=== PATIENT | female | born 1995 | race Caucasian/White ===

== ENCOUNTER 2019-03-14 10:04 | Emergency (ER) | payer OTHER ==
--- NOTE | 2019-03-14 10:52 | UC ---
UC General HPI - HPI Summary HPI Summary: Two days of burning with urination and urinary frequency. Is sexually active with same partner for 3 years. Uses [facility]. Not concerned about STI's at this time. No back pain. No fevers. No abdominal pain. Tolerating PO well. Meds : Reviewed. ITs been many years since she has had a UTI. No vaginal discharge - History of Current Complaint Chief Complaint: UCGU Stated Complaint: URINARY ISSUE Time Seen by Provider: 03/14/19 10:43 Hx Last Menstrual Period: 02/21/19 Pain Intensity: 2 - Allergy/Home Medications Allergies/Adverse Reactions: Allergies Allergy/AdvReac Type Severity Reaction Status Date / Time No Known Allergies Allergy Verified 03/14/19 10:35 Home Medications: Home Medications Control 1 tab PO DAILY 03/14/19 [History Confirmed 03/14/19] PMH/Surg Hx/FS Hx/Imm Hx Previously Healthy: Yes - Surgical History Surgical History: Yes Surgery Procedure, Year, and Place: wisdom teeth - Social History Alcohol Use: Rare Substance Use Type: None Smoking Status (MU): Never Smoked Tobacco Review of Systems All Other Systems Reviewed And Are Negative: Yes Physical Exam Triage Information Reviewed: Yes Appearance: Well-Appearing Vital Signs: Initial Vital Signs Temp 97.9 F 03/14/19 10:33 Pulse 58 03/14/19 10:33 Resp 16 03/14/19 10:33 BP 114/71 03/14/19 10:33 Pulse Ox 100 03/14/19 10:33 Respiratory: Positive: Lungs clear Cardiovascular: Positive: RRR, No Murmur Abdomen Description: Positive: Nontender, Soft, Other: - NO CVA tenderness Course/Dx - Course Course Of Treatment: This is a 24 yr old with dysuria Assessment U/A:+2 blood and +2 protein Based on symptoms most likely UTI Plan Start Bactrim as prescribed We will contact you if you need to change antibiotics If symptoms persist despite taking antibiotics, recommend return to urgent care for further evaluation or return to PCP - Diagnoses Provider Diagnosis: Cystitis Discharge - Sign-Out/Discharge Documenting (check all that apply): Patient Departure All imaging exams completed and their final reports reviewed: No Studies - Discharge Plan Condition: Good Disposition: HOME Patient Education Materials: Urinary Tract Infection in Women (ED) Referrals: No Primary Care Phys,NOPCP [Primary Care Provider] - Veronica Morales DO [Doctor of Osteopathy] - Additional Instructions: Start Bactrim as prescribed We will contact you if you need to change antibiotics If symptoms persist despite taking antibiotics, recommend return to urgent care for further evaluation or return to PCP - Billing Disposition and Condition Condition: GOOD Disposition: Home
== END 2019-03-14 11:04 | disposition home or self-care (01) ==
LOC: UCEAST 10:04
DX: N30.90 Cystitis, unspecified without hematuria (principal)
CPT/HCPCS: 81003; 87077; 87086; 99202; G0463